=== PATIENT | female | born 1970 | race Caucasian/White ===

== ENCOUNTER → 2024-06-26 | Outpatient (CLI) | payer BC ==
--- NOTE | 2024-07-02 08:40 | MM ---
Reason for Exam: Screening (asymptomatic). Patient History: Menarche at age 10. First Full-Term at age 22. Left ovary removed at age 42. Hysterectomy at age 42. Postmenopausal. MG pre op needle loc RT on the Right side. Maternal grandmother had breast cancer at or over age 50. Risk Values: Fatuma 5 year model risk: 1.3%. NCI Lifetime model risk: 8.5%. Prior Study Comparison: No prior studies available for comparison. Tissue Density: There are scattered areas of fibroglandular density. Findings: Analyzed By CAD. Right breast: Masses seen in the posterior medial the right breast approximately 4.3 cm from nipple measuring 6 mm Left breast: Masses in the left breast retroareolar region 2.4 cm from the nipple and 4.5 cm simple. Overall Assessment: Incomplete: need additional imaging evaluation, BI-RAD 0 Management: Diagnostic Breast Ultrasound of both breasts. and [facility] will attempt to contact patient to return for supplemental views and ultrasound if indicated. Patient should continue monthly self-breast exams. A clinical breast exam by your physician is recommended on an annual basis. This exam should not preclude additional follow-up of suspicious palpable abnormalities. Note on Fatuma scores and lifetime risk: 1. A Fatuma score greater than 3% is considered moderate risk. If this is the case, consider specialist referral to assess eligibility for a risk reducing agent. 2. If overall lifetime risk for the development of breast cancer is 20% or higher, the patient may qualify for future screening with alternating mammogram and breast MRI. [facility], , 07/02/2024 8:29 AM. Electronically signed and approved by: Geremias Persaud DO
== END | disposition home or self-care (01) ==
LOC: RADMAMWWP 12:58
PROVIDERS: ATTEND Family Medicine
DX: Z12.31 Encounter for screening mammogram for malignant neoplasm of breast (principal); R92.323 Mammographic fibroglandular density, bilateral breasts; Z80.3 Family history of malignant neoplasm of breast; Z78.0 Asymptomatic menopausal state; Z90.722 Acquired absence of ovaries, bilateral
CPT/HCPCS: 77067

== ENCOUNTER → 2024-07-03 | Outpatient (CLI) | payer BC ==
--- NOTE | 2024-07-05 21:47 | USB ---
Reason for Exam: Additional evaluation requested from abnormal screening. Patient History: Menarche at age 10. First Full-Term at age 22. Left ovary removed at age 42. Hysterectomy at age 42. Postmenopausal. MG pre op needle loc RT on the Right side. Maternal grandmother had breast cancer at or over age 50. Risk Values: Fatuma 5 year model risk: 1.3%. NCI Lifetime model risk: 8.5%. Technique: Method: Targeted. Prior Study Comparison: 06/26/2024 Bilateral MG screening mammo w CAD, [facility]. Findings: The lower outer quadrant of the left breast, the lower inner quadrant of the right breast and the retroareolar of both breasts were scanned. At the 5:00 position 3 cm nipple there is a 0.7 x 0.4 x 1.3 cm solid appearing lesion may have an echogenic focus within the central portion. This may correlate with the density on mammogram. Ultrasound-guided core biopsy with clip placement is recommended. There is a complex area 3:00 position 2 cm nipple likely correlates with the mammographic finding. Biopsy or short-term follow-up left breast finding be performed.. There is a small benign-appearing simple cyst 4:00 position 4 cm simple. Correlate with the mammographic finding. Overall Assessment: Suspicious, BI-RAD 4 Management: Ultrasound Core Biopsy of the left breast. A clinical breast exam by your physician is recommended on an annual basis and results should be correlated with mammographic findings. This exam should not preclude additional follow-up of suspicious palpable abnormalities. Results were given to the patient verbally at the time of exam. [facility], , 07/03/2024 3:26 PM. Electronically signed and approved by: Dominick García D.O. Radiologis
== END | disposition home or self-care (01) ==
LOC: RADUSWWP 14:48
PROVIDERS: ATTEND Family Medicine
DX: R92.8 Other abnormal and inconclusive findings on diagnostic imaging of breast (principal); Z78.0 Asymptomatic menopausal state; Z80.3 Family history of malignant neoplasm of breast; Z90.721 Acquired absence of ovaries, unilateral

== ENCOUNTER → 2024-07-18 | Day surgery (SDC) | payer BC ==
--- NOTE | 2024-07-24 10:08 | MM ---
Reason for Exam: Post Procedure Mammogram. Last screening mammogram was performed less than 1 month ago. Patient History: Menarche at age 10. First Full-Term at age 22. Left ovary removed at age 42. Hysterectomy at age 42. Postmenopausal. MG pre op needle loc RT on the Right side. Maternal grandmother had breast cancer at or over age 50. Risk Values: Fatuma 5 year model risk: 1.3%. NCI Lifetime model risk: 8.5%. Prior Study Comparison: 06/26/2024 Bilateral MG screening mammo w CAD, [facility]. Tissue Density: Left: There are scattered areas of fibroglandular density. Pathology Description: Location: 5 o'clock. Marker Left Behind. Needle Type: Mammotome Cores: 3 Gauge: 13 Pathology Description: Location: 3 o'clock. Marker Left Behind. Needle Type: Mammotome Cores: 4 Gauge: 13 The procedure of ultrasound guided core biopsy was explained to the patient. Benefits, alternatives, and risks were discussed. An informed consent was then obtained. The patient was placed in supine positioning for imaging and for the procedure. The overlying skin was prepped and draped in usual sterile fashion. Lidocaine buffered with bicarbonate was used as anesthetic into the skin at each site in turn. Site A 3:00, lidocaine/epinephrine was used into the subcutaneous tissue up to area of concern. Segment V, additional lidocaine/bicarbonate was used into the subcutaneous tissues up to the area of concern. A. 3:00 complex cyst mammographic correlate: Under ultrasound guidance, a 13-gauge vacuum-assisted mammotome Elite biopsy gun device was used to obtain 4 core samples. Following this, a wing clip was left in lesion. A. 5:00 circumscribed oval mass, mammographic correlate: Under ultrasound guidance, a 13-gauge vacuum-assisted mammotome Elite biopsy gun device was used to obtain 3 core samples. Following this, a HydroMark butterfly was left in lesion. The patient tolerated the procedure well without any immediate complication. The patient was kept in the radiology department for short stay after the procedure and then discharged home in stable condition. Postprocedure mammogram: The patient was transferred to mammography for physician ordered post procedure mammogram for clip placement verification. Post procedure mammogram demonstrates appropriate placement of clip placement at both sites at the mammographic correlates. IMPRESSION: Successful, uncomplicated ultrasound guided two site left breast core biopsy: 1. 3:00 complex cyst mammographic correlate with wing clip, and 2. 5:00 solid mass (possible fibroadenoma) mammographic correlate with HydroMark butterfly clip Full pathology results to follow. [facility], Workstation: [email or web address], 07/18/2024 12:38 PMThe procedure of ultrasound guided core biopsy was explained to the patient. Benefits, alternatives, and risks were discussed. An informed consent was then obtained. The patient was placed in supine positioning for imaging and for the procedure. The overlying skin was prepped and draped in usual sterile fashion. Lidocaine buffered with bicarbonate was used as anesthetic into the skin at each site in turn. Site A 3:00, lidocaine/epinephrine was used into the subcutaneous tissue up to area of concern. Segment V, additional lidocaine/bicarbonate was used into the subcutaneous tissues up to the area of concern. A. 3:00 complex cyst mammographic correlate: Under ultrasound guidance, a 13-gauge vacuum-assisted mammotome Elite biopsy gun device was used to obtain 4 core samples. Following this, a wing clip was left in lesion. A. 5:00 circumscribed oval mass, mammographic correlate: Under ultrasound guidance, a 13-gauge vacuum-assisted mammotome Elite biopsy gun device was used to obtain 3 core samples. Following this, a HydroMark butterfly was left in lesion. The patient tolerated the procedure well without any immediate complication. The patient was kept in the radiology department for short stay after the procedure and then discharged home in stable condition. Postprocedure mammogram: The patient was transferred to mammography for physician ordered post procedure mammogram for clip placement verification. Post procedure mammogram demonstrates appropriate placement of clip placement at both sites at the mammographic correlates. IMPRESSION: Successful, uncomplicated ultrasound guided two site left breast core biopsy: 1. 3:00 complex cyst mammographic correlate with wing clip, and 2. 5:00 solid mass (possible fibroadenoma) mammographic correlate with HydroMark butterfly clip Full pathology results to follow. [facility], Workstation: [email or web address], 07/18/2024 12:39 PM. Pathology Results: Result: Benign. Pathology and radiology were reviewed. Findings are concordant. A. LEFT BREAST, 5:00 3 CM FROM NIPPLE, NEEDLE CORE BIOPSY: Fibroadenoma. B. LEFT BREAST, 3:00 2 CM FROM NIPPLE, NEEDLE CORE BIOPSY: Benign breast with fibrocystic changes including mild to moderate usual type ductal hyperplasia, apocrine metaplasia and fibrosis. Overall Assessment: Benign Assessment: MG diagnostic mammo LT wo CAD. - Left: Benign, BI-RAD 2. Management: Diagnostic Mammogram of the left breast in 6 months. Electronically signed and approved by: Senthil Kessler M.D. Radiologist
== END ==
LOC: RADUSWWP 10:06
PROVIDERS: ATTEND Surgery
DX: D24.2 Benign neoplasm of left breast (principal); N60.82 Other benign mammary dysplasias of left breast; N60.12 Diffuse cystic mastopathy of left breast; Z90.721 Acquired absence of ovaries, unilateral; Z78.0 Asymptomatic menopausal state; Z80.3 Family history of malignant neoplasm of breast
CPT/HCPCS: 88305; 77065; 19083; 19084; A4648

== ENCOUNTER → 2024-07-25 | Outpatient (CLI) | payer BC ==
[2024-07-25 08:25] VITALS: BP 155/99; PULSE 90; RESP 17; TEMP 98.4
--- NOTE | 2024-07-25 09:11 | P.GSCN ---
History of Present Illness Consult date: 07/25/24 Reason for Consult: biopsy left breast/ fibroadenoma/FCD Requesting physician: Rajendra Berry History of present illness: Thalia is a 54 year old female status post bilateral screening mammogram on 06-26-2024. This revealed in the right breast mass seen in the posterior medial right breast approximately 4.3 cm from the nipple measuring 6 mm In the left breast a mass in the left breast retroareolar region 2.4 cm from the nipple. To be BI-RADS 0 and a bilateral ultrasound was recommended. The ultrasound was performed on 07-03-2024 revealed in the lower outer quadrant of the left breast lower inner quadrant of the right breast and retroareolar region of both breast being scanned. At the 5 o'clock position 3 cm from the nipple there was a 0.7 x 1.3 cm solid-appearing lesion with a possible echogenic focus in the central portion. There was also a complex lesion at the 3 o'clock position 2 cm from the nipple and biopsy or short-term follow-up of the left breast findings were recommended. It appears that there was a small benign- appearing cyst at the 4 o'clock position in the right breast. Ultrasound core biopsy of the left breast was recommended. The patient underwent ultrasound core biopsy of the left breast on 07-18-2024. The lesion at 5:00 was a fibroadenoma, the lesion at 3:00 was benign breast tissue. These appear to be benign concordant. The mammogram and ultrasound were personally interpreted. She did not feel any lumps, masses, or nodules of concern prior to the breat biopsy in either breast. She had a right breast biopsy in 1991. It was a cyst. She is not complaining of any trauma or infection of the breast. She is not complaining of any nipple discharge or skin changes. Caffeine: 2 cups coffee/week nicotine: none chocolate: rare BCP: less than a year in remote past hormones: none Family History: maternal grandmother: breast cancer Hormonal History: menarhce: 10 breast fed: no, age at first : 21 menoapuse: hysterectomy 40; took her right ovary no cancer Surgical History: hysterectomy for endometriosis and right ovary removed marsoupal gland surgery in vagina bladder sling tonsil heart cath Medical History: HTN pre-diabetic restless leg high cholesterol pulmonary hypertension, resolved Review of Systems - Constitutional Denies fever, Denies weight loss - EENT EENT Comment(s): wears glasses Eyes: denies blurred vision Ears: deny: decreased hearing, tinnitus Ears, nose, mouth and throat: Denies dysphagia - Breasts bilateral: as per HPI - Cardiovascular Cardiovascular Comment(s): cardiac cath Reports shortness of breath, Denies chest pain - Respiratory Respiratory Comment(s): pulmonary HTN Reports as per HPI - Gastrointestinal Reports as per HPI - Genitourinary Genitourinary: Denies dysuria, Denies hematuria Menstruation: Reports post hysterectomy - Musculoskeletal Musculoskeleta Comment(s): restless legs Reports as per HPI - Integumentary Denies rash, Denies unusual bruising - Neurological Reports headaches, Denies syncope - Psychiatric Reports as per HPI - Endocrine Reports as per HPI, Reports fatigue, Reports weight change - Hematologic/Lymphatic Reports easy bruising, Denies easy bleeding - Allergic/Immunologic Reports as per HPI Past Medical History Past Medical History: Diabetes Mellitus, Hyperlipidemia Additional Past Medical History / Comment(s): restless leg. TYpe 2 DM History of Any Multi-Drug Resistant Organisms: None Reported Past Surgical History: Heart Catheterization, Hysterectomy Additional Past Surgical History / Comment(s): Right breast needle localization. Heart catherization 2009.Bladder suspension Past Anesthesia/Blood Transfusion Reactions: No Reported Reaction Past Psychological History: No Psychological Hx Reported Smoking Status: Never smoker Past Alcohol Use History: Occasional Past Drug Use History: None Reported Medications and Allergies Home Medications Medication Instructions Recorded Confirmed Type Evolocumab [Repatha Sureclick] 1 each SQ WEEKLY 07/07/24 07/07/24 History Pramipexole [Mirapex] 0.25 mg PO HS 07/07/24 07/07/24 History Semaglutide [Ozempic] 0.25 mg SQ WEEKLY 07/07/24 07/07/24 History lisinopriL [Zestril] 10 mg PO DAILY 07/07/24 07/07/24 History Allergies Allergy/AdvReac Type Severity Reaction Status Date / Time Sulfa (Sulfonamide Allergy Rash/Hives Verified 07/07/24 14:03 Antibiotics) Surgical - Exam - General no distress - Eyes normal ocular movement - ENT no hearing loss - Neck trachea midline - Respiratory normal respiratory effort, clear to auscultation - Cardiovascular Rhythm: regular Heart Sounds: normal: S1, S2 - Abdomen Abdomen: soft, non tender, no guarding, no rigid, no rebound - Integumentary normal turgor - Neurologic no disoriented, no combative - Musculoskeletal normal gait - Psychiatric oriented to time, oriented to person, oriented to place, speech is normal, memory intact Breast Exam: BRA; 46DD Inspection: Bilateral grade 2 ptosis Palpation: Right breast: Multi positional exam fibrocystic changes no dominant masses or nodules of concern Right axilla: No adenopathy of concern Left breast: Multi positional exam fibrocystic changes, biopsy sites are healing the 1 on the anterior breast has some mild erythema the patient scratched this area but appears to be healing well No dominant masses or nodules of concern Left axilla: No adenopathy of concern Results Mammogram/ultrasound/pathology all personally reviewed and interpreted Biopsy 2 sites left breast benign concordant fibroadenoma at, benign breast with fibrocystic changes at 3:00 Recommendation right breast repeat ultrasound in 6 months Assessment and Plan Assessment: Impression: Benign concordant biopsy 2 sites left breast Radiographic cyst right breast at 4:00 Of hypertension History of weight gain History of endometriosis status post hysterectomy right oophorectomy History of pulmonary hypertension which is resolving at this time Plan: Close surveillance Repeat bilateral mammogram and breast ultrasound in 6 months with physician exam at that time Style modification including weight loss, avoiding caffeine, avoiding nicotine exposure she understands and will consider these CC: Dr. Berry
== END ==
LOC: WWCWWP 07:47
PROVIDERS: ATTEND Surgery
DX: N63.42 Unspecified lump in left breast, subareolar (principal); N60.01 Solitary cyst of right breast; E78.00 Pure hypercholesterolemia, unspecified; I10 Essential (primary) hypertension; Z87.42 Personal history of other diseases of the female genital tract; Z80.3 Family history of malignant neoplasm of breast; Z90.710 Acquired absence of both cervix and uterus; Z90.721 Acquired absence of ovaries, unilateral; Z88.2 Allergy status to sulfonamides

== ENCOUNTER → 2025-01-05 | Outpatient (CLI) | payer BC ==
[2025-01-06 02:10] LABS: Basophils # (A) 0.09 X 10*3/uL (0.00-0.10); Basophils % (A) 0.8 %; Eosinophils # (A) 0.23 X 10*3/uL (0.04-0.35); HCT 47.8 % (37.2-46.3); HGB 14.4 g/dL (12.0-15.0); Lymphocytes # (A) 3.46 X 10*3/uL (0.90-5.00); Lymphocytes % (A) 30.6 %; MCH 27.3 pg (27.0-32.0); MCHC 30.1 g/dL (32.0-37.0); MCV 90.5 FL (80.0-97.0); Mean Platelet Volume 10.5 FL (9.5-12.2); Monocytes # (A) 0.56 X 10*3/uL (0.20-1.00); NRBC Per 100 WBC 0 X 10*3/uL (0.00-0.01); Neutrophils # (A) 6.91 X 10*3/uL (1.80-7.70); Neutrophils % (A) 61.2 %; Platelet Count 309 X 10*3/uL (140-440); RBC 5.28 X 10*6/uL (4.10-5.20); RDW 13.4 % (11.5-14.5)
[2025-01-06 02:41] LABS: Protein, Total 7.5 g/dL (6.2-8.2)
[2025-01-06 02:55] LABS: % Iron Saturation 23.67 (12.00-45.00); BUN/Creat Ratio 17.38 Ratio (12.00-20.00); Blood Urea Nitrogen 13.9 mg/dL (9.0-27.0); Chloride 103 mmol/L (96-109); Glucose 100 mg/dL (70-110); Iron 107 UG/DL (50-170); Potassium 4.7 mmol/L (3.5-5.5); Sodium 143 mmol/L (135-145); Total Iron Binding Capacity 452 UG/DL (228-460)
[2025-01-06 02:56] LABS: ALT 217 U/L (8-44); AST 188 U/L (13-35); Albumin 4.5 g/dL (3.8-4.9); Alkaline Phosphatase 120 U/L (41-126); Carbon Dioxide 24.8 mmol/L (21.6-31.8); Total Bilirubin 0.5 mg/dL (0.3-1.2); Total Protein 7.5 g/dL (6.2-8.2)
[2025-01-06 02:57] LABS: Hepatitis B Surface Antigen Nonreactive (Nonreactive); Hepatitis C IgG Antibody Nonreactive (Nonreactive)
[2025-01-06 03:10] LABS: Ceruloplasmin 29.9 mg/dL (20.0-60.0)
[2025-01-06 12:37] LABS: Smooth Muscle Antibody 6 UNITS (<20)
== END | disposition home or self-care (01) ==
LOC: LABWHC1 16:13
PROVIDERS: ATTEND Internal Medicine Gastroenterology
DX: K76.0 Fatty (change of) liver, not elsewhere classified (principal); R74.8 Abnormal levels of other serum enzymes
CPT/HCPCS: 36415; 80053; 81596; 82103; 82390; 82728; 83516; 83540; 83550; 84165; 85025; 86038; 86803; 87340

== ENCOUNTER → 2025-02-04 | Outpatient (CLI) | payer BC ==
[2025-02-04 19:05] LABS: Basophils # (A) 0.08 X 10*3/uL (0.00-0.10); Basophils % (A) 0.7 %; Eosinophils # (A) 0.19 X 10*3/uL (0.04-0.35); Eosinophils % (A) 1.8 %; HCT 46.6 % (37.2-46.3); HGB 14.4 g/dL (12.0-15.0); Immature Grans, Automated 0.50 %; Lymphocytes # (A) 2.72 X 10*3/uL (0.90-5.00); Lymphocytes % (A) 25.3 %; MCH 27.0 pg (27.0-32.0); MCHC 30.9 g/dL (32.0-37.0); MCV 87.3 FL (80.0-97.0); Monocytes # (A) 0.47 X 10*3/uL (0.20-1.00); Monocytes % (A) 4.4 %; NRBC Per 100 WBC 0 X 10*3/uL (0.00-0.01); Neutrophils # (A) 7.22 X 10*3/uL (1.80-7.70); Neutrophils % (A) 67.3 %; Platelet Count 307 X 10*3/uL (140-440); RBC 5.34 X 10*6/uL (4.10-5.20); RDW 13.2 % (11.5-14.5); WBC 10.73 X 10*3/uL (4.50-10.00)
[2025-02-04 19:12] LABS: ALT 225 U/L (8-44); AST 228 U/L (13-35); Albumin 4.4 g/dL (3.8-4.9); Albumin/Globulin Ratio 1.47 Ratio (1.60-3.17); Alkaline Phosphatase 110 U/L (41-126); Anion Gap 13.40 mmol/L (4.00-12.00); BUN/Creat Ratio 12.38 Ratio (12.00-20.00); Blood Urea Nitrogen 9.9 mg/dL (9.0-27.0); Calcium 9.9 mg/dL (8.7-10.3); Carbon Dioxide 22.6 mmol/L (21.6-31.8); Chloride 102 mmol/L (96-109); Globulin 3.0 g/dL (1.6-3.3); Glucose 140 mg/dL (70-110); Potassium 3.9 mmol/L (3.5-5.5); Sodium 138 mmol/L (135-145); Total Protein 7.4 g/dL (6.2-8.2)
== END | disposition home or self-care (01) ==
LOC: LABWHC1 14:32
PROVIDERS: ATTEND Internal Medicine Gastroenterology
DX: R74.8 Abnormal levels of other serum enzymes (principal); Z83.49 Family history of other endocrine, nutritional and metabolic diseases
CPT/HCPCS: 36415; 80053; 81256; 85025